=== PATIENT | male | born 1960 | race Two or more races ===

== ENCOUNTER 2018-05-17 13:36 | Emergency (ER) | payer OTHER ==
[~2018-05-17] VITALS: Ht 175.3 cm; Wt 92.1 kg
[~2018-05-17 13:36] MED LIST: AMLODIPINE BESYL5 MG; ASPIR 8181 MG; COZAAR25 MG; DOXAZOSIN MESYLA4 MG; LIPITOR20 MG
== END 2018-05-17 16:46 | disposition home or self-care (01) ==
LOC: ER 13:36
DX: M54.5 Low back pain (principal); I10 Essential (primary) hypertension

== ENCOUNTER 2020-11-11 09:00 | Emergency (ER) | payer OTHER ==
[~2020-11-11] VITALS: Ht 175.3 cm; Wt 79.4 kg
[2020-11-11] MEDS ORDERED: CARDURA1 MG (09:22)
[2020-11-11] MEDS ORDERED: INTESTINEX680 M1 PO (16:10)
[2020-11-11] MEDS ORDERED: DUI500 PO (16:10)
== END 2020-11-11 16:56 | disposition home or self-care (01) ==
LOC: ER 09:00
DX: N39.0 Urinary tract infection, site not specified (principal); B96.29 Other Escherichia coli [E. coli] as the cause of diseases classified elsewhere; R31.29 Other microscopic hematuria; Z03.818 Encounter for observation for suspected exposure to other biological agents ruled out

== ENCOUNTER 2020-11-14 02:53 | Inpatient (IN) | payer OTHER ==
[~2020-11-14] VITALS: Ht 175.3 cm; Wt 80.7 kg
[~2020-11-14 02:53] MED LIST changes: +CARDURA1 MG; +DUI500 PO; +INTESTINEX680 M1 PO
[2020-11-14] MEDS ORDERED: INTESTINEX680 M1 (03:05)
[2020-11-14] MEDS ORDERED: CEFADROXIL500 MG (03:05)
== END 2020-11-16 08:30 | disposition designated cancer center or children's hospital (05) | DRG 281 ==
LOC: ER 02:53 → SEC-K 09:16 → MEDJ 09:16
PROVIDERS: ADMIT Internal Medicine; ATTEND Internal Medicine
PROC: 4A12X4Z Monitoring of Cardiac Electrical Activity, External Approach (ICD-10-PCS; principal; 2020-11-14)
DX: I21.4 Non-ST elevation (NSTEMI) myocardial infarction (principal); N39.0 Urinary tract infection, site not specified; I16.0 Hypertensive urgency; I10 Essential (primary) hypertension; Z20.822 Contact with and (suspected) exposure to COVID-19

== ENCOUNTER 2022-08-17 08:45 | Emergency (ER) | payer OTHER ==
[~2022-08-17] VITALS: Ht 175.3 cm; Wt 87.1 kg
[~2022-08-17 08:45] MED LIST changes: +CEFADROXIL500 MG; +INTESTINEX680 M1
[2022-08-17] MEDS ORDERED: CRESTOR20 MG (08:53)
== END 2022-08-17 12:12 | disposition home or self-care (01) ==
LOC: ER 08:45
DX: H02.89 Other specified disorders of eyelid (principal); I10 Essential (primary) hypertension

== ENCOUNTER → 2022-11-28 | Emergency (ER) | payer OTHER ==
[~2022-11-28] VITALS: Ht 175.3 cm; Wt 83.9 kg
[~2022-11-28] MED LIST changes: +BACTRIM DS TAB1 EACH PO; +CRESTOR20 MG
== END | disposition home or self-care (01) ==
LOC: ER 11:49
DX: N39.0 Urinary tract infection, site not specified (principal); R31.9 Hematuria, unspecified

== ENCOUNTER 2022-12-23 20:09 | Emergency (ER) | payer OTHER ==
[~2022-12-23] VITALS: Ht 167.6 cm; Wt 85.7 kg
== END 2022-12-24 00:49 | disposition home or self-care (01) ==
LOC: ER 20:09
DX: N39.0 Urinary tract infection, site not specified (principal); I10 Essential (primary) hypertension

== ENCOUNTER 2024-01-28 07:05 | Emergency (ER) | payer OTHER ==
[~2024-01-28] VITALS: Ht 175.3 cm; Wt 90.7 kg
[~2024-01-28 07:05] MED LIST changes: +CARDURA XL4 MG PO; +PLAVIX75 MG PO
[2024-01-28] MEDS ORDERED: GUAIFENESIN 200 MG/10 ML BLIST.PACK PO STA (08:24)
[2024-01-28 08:56] LABS: HEMATOCRIT 45.3 % (39.0-48.0); HEMOGLOBIN 15.1 g/dL (13-16.00); MEAN CELL VOLUME 82.7 fL (80.0-100.00); MEAN CORPUSCULAR HEMOGLOBIN 27.5 pg (27.00-32.0); MEAN CORPUSCULAR HGB CONC 33.3 g/dl (32.0-36.0); PLATELET COUNT 205 K/uL (150-450); RED BLOOD COUNT 5.48 M/uL (4.00-6.00); RED CELL DISTRIBUTION WIDTH 12.9 % (11.5-14.5)
[2024-01-28 09:23] LABS: CALCIUM 9.2 mg/dL (8.5-10.1); CREATININE SERUM 1.05 mg/dL (0.70-1.30); GFR 71.34; POTASSIUM 3.69 mEq/L (3.5-5.1)
[2024-01-28] MEDS ORDERED: KETOROLAC TROMETHAMINE 15 MG VIAL IV STA (10:37)
== END 2024-01-28 10:52 | disposition home or self-care (01) ==
LOC: ER 07:05
PROVIDERS: General Practice
DX: J06.9 Acute upper respiratory infection, unspecified (principal); I10 Essential (primary) hypertension; Z20.822 Contact with and (suspected) exposure to COVID-19